=== PATIENT | female | born 1995 | race Caucasian/White ===

== ENCOUNTER 2016-03-31 19:22 | Emergency (ER) | payer BC ==
[2016-03-31] MEDS ORDERED: DIPHENHYDRAMINE HCL 50 MG CAPSULE PO ONE (19:52)
--- NOTE | 2016-03-31 19:52 | ER Document Report ---
ED Medical Screen (RME) - General Stated Complaint: VOMITING Mode of Arrival: Ambulatory Information source: Patient Notes: Patient states she's had nausea and vomiting that started today. Patient's currently 10 weeks . Patient has had ultrasound to confirm the . Patient complains of side pain syndrome vomiting. hx: None I have greeted and performed a rapid initial assessment of this patient. A comprehensive ED assessment and evaluation of the patient, analysis of test results and completion of the medical decision making process will be conducted by additional ED providers. TRAVEL OUTSIDE OF THE [place] IN LAST 30 DAYS: No - Related Data Allergies/Adverse Reactions: No Known Allergies Allergy (Verified 03/31/16 19:51) Past Medical History - Immunizations Immunizations up to date: Yes Hx Diphtheria, Pertussis, Tetanus Vaccination: Yes Physical Exam - Vital signs Vitals: Temp Pulse Resp BP Pulse Ox 97.5 F 95 H 18 143/81 H 97 03/31/16 19:44 03/31/16 19:44 03/31/16 19:44 03/31/16 19:44 03/31/16 19:44 - Abdominal Tenderness: Tender - Right lateral side Course - Vital Signs Vital signs: Temp Pulse Resp BP Pulse Ox 97.5 F 95 H 18 143/81 H 97 03/31/16 19:44 03/31/16 19:44 03/31/16 19:44 03/31/16 19:44 03/31/16 19:44
[2016-03-31 21:02] LABS: ABSOLUTE LYMPHOCYTES (AUTO) 1.6 10^3/uL (0.5-4.7); ABSOLUTE MONOCYTES (AUTO) 0.9 10^3/uL (0.1-1.4); ABSOLUTE NEUT (AUTO) 12.9 10^3/uL (1.7-8.2); BASOPHILS % (AUTO) 0.3 % (0-2); EOSINOPHILS % (AUTO) 0.2 % (0-6); HEMATOCRIT 36.4 % (36.0-47.0); HEMOGLOBIN 12.3 g/dL (12.0-15.5); HGB HCT DIFFERENCE 0.5; LYMPHOCYTES % (AUTO) 10.3 % (13-45); MEAN CORPUSCULAR HGB CONC 33.7 g/dL (32.0-36.0); MEAN CORPUSCULAR VOLUME 86 fl (80-97); MONOCYTES % (AUTO) 5.7 % (3-13); RED BLOOD COUNT 4.24 10^6/uL (3.72-5.28); RED CELL DISTRIBUTION WIDTH 13.5 % (11.5-14.0); SEGMENTED NEUTROPHILS % (AUTO) 83.5 % (42-78); WHITE BLOOD COUNT 15.4 10^3/uL (4.0-10.5)
[2016-03-31 21:22] LABS: ALANINE AMINOTRANSFERASE 29 U/L (5-35); ALBUMIN 4.5 g/dL (3.7-5.6); ALKALINE PHOSPHATASE 74 U/L (50-135); ANION GAP 13 (5-19); ASPARTATE AMINO TRANSFERASE 19 U/L (5-30); BILIRUBIN,TOTAL 0.6 mg/dL (0.2-1.3); BLOOD UREA NITROGEN 8 mg/dL (7-20); CARBON DIOXIDE 22 mmol/L (22-30); CHLORIDE 101 mmol/L (98-107); GLUCOSE 105 mg/dL (75-110); LIPASE 65.7 U/L (23-300); POTASSIUM 4.2 mmol/L (3.6-5.0); SODIUM 135.9 mmol/L (137-145); TOTAL PROTEIN 7.8 g/dL (6.3-8.2)
[2016-03-31] MEDS ORDERED: NORMAL SALINE 1000 ML 1,000 ML IV ONE (23:56)
[2016-04-01] MEDS ORDERED: METOCLOPRAMIDE HCL INJ/PF 10 MG/2 ML SDV IV ONE (00:02)
--- NOTE | 2016-04-01 00:04 | ER Document Report ---
ED General - General Chief Complaint: Nausea/Vomiting Stated Complaint: VOMITING Mode of Arrival: Ambulatory Notes: Patient is a 20 year old female who presents with complaint of excessive vomiting and dehydration. She is presently 10 weeks . She's had vomiting throughout her first trimester . Today the vomiting continued throughout the day. Usually her vomiting is just the morning. No abdominal pain she has some mild epigastric pain. She also has a little bit of left lower quadrant pain which she says is chronic related to an ovarian cyst. She's had no vaginal bleeding. She had a normal intrauterine on ultrasound recently via ultrasound by her reclaimer. She was prescribed Zofran but then was told not to take it and therefore she has not been taking it. She said no fevers. No diarrhea. No other complaints at this time. TRAVEL OUTSIDE OF THE [place] IN LAST 30 DAYS: No - Related Data Allergies/Adverse Reactions: No Known Allergies Allergy (Verified 03/31/16 19:51) Past Medical History - General Information source: Patient - Social History Smoking Status: Never Smoker Chew tobacco use (# tins/day): No Frequency of alcohol use: None Drug Abuse: None Family History: Arthritis, CAD, DM, Hyperlipidemia, Hypertension, Malignancy Renal/ Medical History: Denies: Hx Peritoneal Dialysis - Immunizations Immunizations up to date: Yes Hx Diphtheria, Pertussis, Tetanus Vaccination: Yes Hx Pneumococcal Vaccination: 03/13/13 Review of Systems - Review of Systems Notes: My Normal Review Basic REVIEW OF SYSTEMS: CONSTITUTIONAL : Denies fever, chills, or sweats. Denies recent illness. EENT: Denies eye, ear, throat, or mouth pain or symptoms. Denies nasal or sinus congestion.n. RESPIRATORY: Denies cough, cold, or chest congestion. Denies shortness of breath, difficulty breathing, or wheezing. GASTROINTESTINAL: Epigastric abdominal pain. Recurrent vomiting. Denies constipation. Last BM: GENITOURINARY: Denies difficulty urinating, painful urination, burning, frequency, or blood in urine. FEMALE GENITOURINARY: No vaginal bleeding. Currently . MUSCULOSKELETAL: Denies neck or back pain or joint pain or swelling. SKIN: Denies rash or skin lesions. NEUROLOGICAL: Denies altered mental status or loss of consciousness. Denies headache. Denies weakness or paralysis or loss of use of either side. Denies problems with gait or speech. Denies sensory or motor loss. ALL OTHER SYSTEMS REVIEWED AND NEGATIVE. Physical Exam - Vital signs Vitals: Temp Pulse Resp BP Pulse Ox 97.5 F 95 H 18 143/81 H 97 03/31/16 19:44 03/31/16 19:44 03/31/16 19:44 03/31/16 19:44 03/31/16 19:44 - Notes Notes: General Appearance: Well nourished, alert, cooperative, no acute distress, no obvious discomfort. Vitals: reviewed, See vital signs table. Head: no swelling or tenderness to the head Eyes: PERRL, EOMI, Conjuctiva clear Mouth: No decreasd moisture Lungs: No wheezing, No rales, No rhonci, No accessory muscle use, good air exchange bilaterally. Heart: Normal rate, Regular rythm, No murmur, no rub Abdomen: Normal BS, soft, No rigidity, mild epigastric abdominal tenderness to palpation, No guarding, no rebound, no abdominal masses, no organomegaly Extremities: strength 5/5 in all extremities, good pulses in all extremities, no swelling or tenderness in the extremities, no edema. Skin: warm, dry, appropriate color, no rash Neuro: speech clear, oriented x 3, normal affect, responds appropriately to questions. Course - Re-evaluation Re-evalutation: 04/01/16 02:45 Patient is looking much improved. Her nausea is gone and the Reglan worked well for her. We are just awaiting patient's urinalysis. - Vital Signs Vital signs: Temp Pulse Resp BP Pulse Ox 97.5 F 95 H 18 143/81 H 97 03/31/16 19:44 03/31/16 19:44 03/31/16 19:44 03/31/16 19:44 03/31/16 19:44 - Laboratory Result Diagrams: 03/31/16 20:07 03/31/16 20:07 Laboratory results interpreted by me: 03/31/16 03/31/16 04/01/16 20:07 20:07 02:23 WBC 15.4 H Seg Neutrophils % 83.5 H Lymphocytes % 10.3 L Absolute Neutrophils 12.9 H Sodium 135.9 L Beta HCG, Quant 02145.00 H Urine Protein 30 H Urine Ketones 20 H Urine Ascorbic Acid 40 H - Transfer of Care Notes: 04/01/16 03:18 Patient is nausea is completely resolved Reglan. She's not had any further vomiting. She's received 2 L of IV fluids. She looks well. She has some mild epigastric abdominal pain. She does not have much pain over the right upper quadrant. She has no elevation of liver enzymes. I think all but her disease is unlikely I think this is mostly hyperemesis gravidarum. I did talk to her about changes in her pain. I informed her that she must return to ER immediately if she does develop any recurrent abdominal pain, pain localized to right upper quadrant, any fevers, or worsening of her vomiting. Patient agrees with plan will be discharged home. Dictation of this chart was performed using voice recognition software; therefore, there may be some unintended grammatical errors. Discharge - Discharge Clinical Impression: Hyperemesis gravidarum Condition: Good Disposition: HOME, SELF-CARE Additional Instructions: Hyperemesis Gravidarum Hyperemesis gravidarum is the medical term for severe vomiting during . We don't know exactly why it occurs, but it's a common problem. Dehydration can occur. This reduces blood flow to the placenta, decreasing the baby's nourishment. The baby will also become dehydrated. There can be harmful changes in blood sodium, potassium, or acid balance. Our goal is to correct, and prevent, dehydration. For severe cases, we give IV fluids. Antinausea medication will be prescribed. (Don't be concerned about " defects" -- the risk to you and your baby from the hyperemesis is the biggest problem. The antinausea medication is very safe at this stage of .) Call the doctor if you have vaginal bleeding, abdominal pain, severe lightheadedness or weakness, or other alarming symptoms. Please return to the ER immediately if you have recurrent abdominal pain, pain focal to the right upper quadrant, any fevers, or recurrent vomiting despite taking the Reglan. Please follow-up with your OB doctor for close reevaluation in 2-3 days. Prescriptions: Metoclopramide HCl [Reglan 10 mg Tablet] 1 tab PO ASDIR PRN #25 tablet PRN Reason: Forms: Return to Work Referrals: MARIANNA ALFREDO MD [Primary Care Provider] - 04/03/16
[2016-04-01 02:51] LABS: APPEARANCE,URINE SLIGHTLY-CLOUDY; BILIRUBIN,URINE NEGATIVE (NEGATIVE); GLUCOSE, URINE NEGATIVE (NEGATIVE); KETONES,URINE 20 mg/dL (NEGATIVE); LEUKOCYTE ESTERASE,URINE NEGATIVE (NEGATIVE); NITRITE,URINE NEGATIVE (NEGATIVE); PROTEIN,URINE 30 mg/dL (NEGATIVE); URINE SPECIFIC GRAVITY 1.027; UROBILINOGEN,URINE NEGATIVE mg/dL (<2.0)
[2016-04-01 04:50] VITALS: BP 103/74
== END 2016-04-01 03:50 | disposition home or self-care (01) ==
LOC: ER 19:22
DX: O21.0 Mild hyperemesis gravidarum (principal); O26.891 Other specified pregnancy related conditions, first trimester; R10.13 Epigastric pain; R10.32 Left lower quadrant pain; O34.81 Maternal care for other abnormalities of pelvic organs, first trimester; N83.202 Unspecified ovarian cyst, left side; Z3A.10 10 weeks gestation of pregnancy
CPT/HCPCS: 99283; 96374; 36415; 84702; 83690; 85025; 80053; 81001; J2765

== ENCOUNTER 2016-05-08 16:23 | Emergency (ER) | payer BC ==
--- NOTE | 2016-05-08 16:50 | ER Document Report ---
ED Medical Screen (RME) - General Stated Complaint: VOMITING, ABDOMINAL PAIN Notes: 20 yo female, 15 weeks G1, c/o n/v since this morning. last vomited 1 hr SHANK RANDER. mild suprapubic cramping. doesnt feel baby "moving as much". no spotting. TRAVEL OUTSIDE OF THE [place] IN LAST 30 DAYS: No - Related Data Allergies/Adverse Reactions: No Known Allergies Allergy (Verified 05/08/16 16:46) Past Medical History Renal/ Medical History: Denies: Hx Peritoneal Dialysis - Immunizations Immunizations up to date: Yes Hx Diphtheria, Pertussis, Tetanus Vaccination: Yes Physical Exam - Vital signs Vitals: Temp Pulse Resp BP Pulse Ox 98.2 F 87 16 121/76 98 05/08/16 16:30 05/08/16 16:30 05/08/16 16:30 05/08/16 16:30 05/08/16 16:30 Course - Vital Signs Vital signs: Temp Pulse Resp BP Pulse Ox 98.2 F 87 16 121/76 98 05/08/16 16:30 05/08/16 16:30 05/08/16 16:30 05/08/16 16:30 05/08/16 16:30
[2016-05-08 17:08] LABS: ABSOLUTE EOSINOPHILS # (AUTO) 0.1 10^3/uL (0.0-0.6); ABSOLUTE LYMPHOCYTES (AUTO) 2.5 10^3/uL (0.5-4.7); ABSOLUTE MONOCYTES (AUTO) 1.1 10^3/uL (0.1-1.4); ABSOLUTE NEUT (AUTO) 9.9 10^3/uL (1.7-8.2); BASOPHILS % (AUTO) 0.3 % (0-2); EOSINOPHILS % (AUTO) 0.8 % (0-6); HEMOGLOBIN 12.2 g/dL (12.0-15.5); HGB HCT DIFFERENCE 0.6; LYMPHOCYTES % (AUTO) 18.5 % (13-45); MEAN CORPUSCULAR HEMOGLOBIN 29.4 pg (27.0-33.4); MEAN CORPUSCULAR VOLUME 87 fl (80-97); MONOCYTES % (AUTO) 7.7 % (3-13); RED BLOOD COUNT 4.17 10^6/uL (3.72-5.28); RED CELL DISTRIBUTION WIDTH 13.3 % (11.5-14.0); SEGMENTED NEUTROPHILS % (AUTO) 72.7 % (42-78); WHITE BLOOD COUNT 13.6 10^3/uL (4.0-10.5)
[2016-05-08 17:24] LABS: ALANINE AMINOTRANSFERASE 38 U/L (5-35); ALBUMIN 4.5 g/dL (3.7-5.6); ALKALINE PHOSPHATASE 71 U/L (50-135); ANION GAP 12 (5-19); ASPARTATE AMINO TRANSFERASE 22 U/L (5-30); BILIRUBIN,DIRECT 0.2 mg/dL (0.0-0.4); BILIRUBIN,TOTAL 0.4 mg/dL (0.2-1.3); BLOOD UREA NITROGEN 9 mg/dL (7-20); CALCIUM 10.2 mg/dL (8.4-10.2); CARBON DIOXIDE 27 mmol/L (22-30); CHLORIDE 100 mmol/L (98-107); GLUCOSE 92 mg/dL (75-110); POTASSIUM 4.1 mmol/L (3.6-5.0); SODIUM 138.8 mmol/L (137-145)
[2016-05-08 17:27] LABS: APPEARANCE,URINE CLOUDY; BILIRUBIN,URINE NEGATIVE (NEGATIVE); GLUCOSE, URINE NEGATIVE (NEGATIVE); KETONES,URINE NEGATIVE (NEGATIVE); LEUKOCYTE ESTERASE,URINE TRACE (NEGATIVE); NITRITE,URINE NEGATIVE (NEGATIVE); PROTEIN,URINE NEGATIVE (NEGATIVE); URINE SPECIFIC GRAVITY 1.014; UROBILINOGEN,URINE NEGATIVE mg/dL (<2.0)
--- NOTE | 2016-05-08 19:46 | ER Document Report ---
ED GI/ - General Chief Complaint: Vomiting Stated Complaint: VOMITING, ABDOMINAL PAIN Notes: Patient is a 20-year-old female presents emergency department complaining of vomiting and lower abdominal pain. Patient is a 15 week female with last menstrual period on 01/14/2016. Patient states that she has a history of hyperemesis gravidarum which is been followed by ARTURO Alfredo OB /CARDIOTHORACIC SURGEON during her . Patient states that today after lunch she admits to nausea with one episode of emesis followed by left lower abdominal pain. She describes this pain as a crampy/pulled muscle feeling which is consistent with her history of ovarian cyst. She's not taken anything for this pain today. The only thing that is abnormal for her she states is that she feels she has less movement and normal. Based on these symptoms, [facility] office referred her to the emergency department. She denies any urinary symptoms, vaginal bleeding, vaginal pain, vaginal discharge. She denies any nausea now but still admits to left lower quadrant pain which is a 1 out of 5 in severity. Primary care is [facility] Past medical history significant for history of ovarian cysts, hyperemesis gravidarum, history of pyelonephritis Denies any past surgical or social history Denies any allergies taking vitamins as well as Reglan for nausea. She is due to follow up with [facility] [employer] AD[facility] on May 23 TRAVEL OUTSIDE OF THE [place] IN LAST 30 DAYS: No - Related Data Allergies/Adverse Reactions: No Known Allergies Allergy (Verified 05/08/16 16:46) Past Medical History - Social History Smoking Status: Unknown if Ever Smoked Chew tobacco use (# tins/day): No Frequency of alcohol use: None Drug Abuse: None Family History: Arthritis, CAD, DM, Hyperlipidemia, Hypertension, Malignancy Patient has suicidal ideation: No Patient has homicidal ideation: No Renal/ Medical History: Denies: Hx Peritoneal Dialysis - Immunizations Immunizations up to date: Yes Hx Diphtheria, Pertussis, Tetanus Vaccination: Yes Hx Pneumococcal Vaccination: 03/13/13 Review of Systems - Review of Systems Constitutional: No symptoms reported EENT: No symptoms reported Cardiovascular: No symptoms reported Respiratory: No symptoms reported Gastrointestinal: See HPI Genitourinary: See HPI -: Yes All other systems reviewed and negative Physical Exam - Vital signs Vitals: Temp Pulse Resp BP Pulse Ox 98.2 F 87 16 121/76 98 05/08/16 16:30 05/08/16 16:30 05/08/16 16:30 05/08/16 16:30 05/08/16 16:30 - Notes Notes: PHYSICAL EXAM GENERAL: Alert, interacts well. HEAD: Normocephalic, atraumatic. EYES: Pupils equal, round, and reactive to light. Extraocular movements intact. ENT: Oral mucosa moist, tongue midline. NECK: Full range of motion. Supple. Trachea midline. LUNGS: Clear to auscultation bilaterally, no wheezes, rales, or rhonchi. No respiratory distress. HEART: Regular rate and rhythm. No murmurs, gallops, or rubs. ABDOMEN: Soft, nondistended, nontender. No guarding, rebound, or rigidity.. Bowel sounds present in all 4 quadrants. EXTREMITIES: Moves all 4 extremities spontaneously. No edema, radial and dorsalis pedis pulses 2/4 bilaterally. No cyanosis. NEUROLOGICAL: Alert and oriented x4. Normal speech. PSYCH: Normal affect, normal mood. SKIN: Warm, dry, normal turgor. No rashes or lesions noted. Course - Re-evaluation Re-evalutation: 05/08/16 20:14 Patient is a 20-year-old female who is 15 weeks presents with hyperemesis gravidarum with left lower quadrant pain that is chronic from ovarian cysts. Patient's physical exam is completely benign for any evidence of an acute abdomen or pelvic pathology. Patient is been tolerating by mouth since this afternoon with one episode of emesis. heart rates were 158. Laboratory findings do not show any signs of leukocytosis, anemia. No acute electrolyte abnormalities, elevations in liver function, kidney function and pancreatic function. Patient has been encouraged to follow up with [facility] [employer] as scheduled Per [facility] protocol and guidelines, this case was discussed with supervising physician Dr. Larry Larry prior to discharge - Vital Signs Vital signs: Temp Pulse Resp BP Pulse Ox 98.2 F 87 16 121/76 98 05/08/16 16:30 05/08/16 16:30 05/08/16 16:30 05/08/16 16:30 05/08/16 16:30 - Laboratory Result Diagrams: 05/08/16 16:50 05/08/16 16:50 Laboratory results interpreted by me: 05/08/16 05/08/16 05/08/16 16:50 16:50 16:50 WBC 13.6 H Absolute Neutrophils 9.9 H ALT 38 H Beta HCG, Quant 99322.00 H Ur Leukocyte Esterase TRACE H Discharge - Discharge Clinical Impression: Abdominal pain during Condition: Good Disposition: HOME, SELF-CARE Additional Instructions: There were no acute concerns on evaluation today in the emergency department. Follow up with [facility] [employer] as scheduled Please take your medications as prescribed Please return to the emergency department if your abdominal pain is severe and does not resolve, vomiting that does not respond to home medications, any severe vaginal bleeding that does not resolve. Referrals: MARIANNA ALFREDO MD [Primary Care Provider] - Follow up in 1 week
[2016-05-08 20:19] VITALS: BP 117/74
== END 2016-05-08 20:29 | disposition home or self-care (01) ==
LOC: ER 16:23
DX: O34.80 Maternal care for other abnormalities of pelvic organs, unspecified trimester (principal); N83.209 Unspecified ovarian cyst, unspecified side; O21.0 Mild hyperemesis gravidarum; O26.892 Other specified pregnancy related conditions, second trimester; R10.32 Left lower quadrant pain; Z3A.15 15 weeks gestation of pregnancy; O36.8120 Decreased fetal movements, second trimester, not applicable or unspecified; Z87.440 Personal history of urinary (tract) infections; Z79.899 Other long term (current) drug therapy
CPT/HCPCS: 36415; 80053; 81001; 84702; 85025; 99284

== ENCOUNTER 2016-06-15 10:33 | Emergency (ER) | payer BC ==
[2016-06-15] MEDS ORDERED: DIPHENHYDRAMINE HCL 50 MG/ML VIAL IV ONE (11:10)
[2016-06-15] MEDS ORDERED: RINGERS SOLUTION,LACTATED 1,000 ML IV ONE (11:10)
[2016-06-15] MEDS ORDERED: METOCLOPRAMIDE HCL INJ/PF 10 MG/2 ML SDV IV ONE (11:10)
--- NOTE | 2016-06-15 11:16 | ER Document Report ---
ED General - General Chief Complaint: Nausea/Vomiting Stated Complaint: VOMITING Notes: Patient is a 20-year-old female at 20 weeks with a history of hyperemesis gravidarum who presents with 12 hours of persistent vomiting. They became concerned when she began to have flecks of blood and several episodes of her vomitus today and so they came to the emergency room. She has had multiple similar presentations in the past. She has been trying Zofran and doxylamine at home without improvement of her symptoms. Nothing worsens or symptoms. She has not recently seen her MARKETING PLANNER regarding today's concerns. She continues to feel active movement. Denies any vaginal bleeding, focal abdominal pain, diarrhea, chest pain or shortness of breath. TRAVEL OUTSIDE OF THE [place] IN LAST 30 DAYS: No - Related Data Allergies/Adverse Reactions: No Known Allergies Allergy (Verified 06/15/16 10:39) Past Medical History - General Information source: Patient - Social History Smoking Status: Never Smoker Frequency of alcohol use: None Drug Abuse: None Lives with: Parents Family History: Arthritis, CAD, DM, Hyperlipidemia, Hypertension, Malignancy Patient has suicidal ideation: No Patient has homicidal ideation: No Renal/ Medical History: Denies: Hx Peritoneal Dialysis - Immunizations Immunizations up to date: Yes Hx Diphtheria, Pertussis, Tetanus Vaccination: Yes Hx Pneumococcal Vaccination: 03/13/13 Review of Systems - Review of Systems Notes: Constitutional: Negative for fever. HENT: Negative for sore throat. Eyes: Negative for visual changes. Cardiovascular: Negative for chest pain. Respiratory: Negative for shortness of breath. Gastrointestinal: Negative for abdominal pain, positive for vomiting. Genitourinary: Negative for dysuria. Musculoskeletal: Negative for back pain. Skin: Negative for rash. Neurological: Negative for headaches, weakness or numbness. 10 point ROS negative except as marked above and in HPI. Physical Exam - Vital signs Vitals: Temp Pulse Resp BP Pulse Ox 97.5 F 108 H 18 138/80 H 99 06/15/16 10:36 06/15/16 10:36 06/15/16 10:36 06/15/16 10:36 06/15/16 10:36 Notes: PHYSICAL EXAMINATION: GENERAL: Well-appearing, well-nourished and in no acute distress. HEAD: Atraumatic, normocephalic. EYES: Pupils equal round and reactive to light, extraocular movements intact, sclera anicteric, conjunctiva are normal. ENT: nares patent, oropharynx clear without exudates. Moist mucous membranes. NECK: Normal range of motion, supple without lymphadenopathy LUNGS: Breath sounds clear to auscultation bilaterally and equal. No wheezes rales or rhonchi. HEART: Regular rate and rhythm without murmurs ABDOMEN: Soft, nontender, normoactive bowel sounds. No guarding, no rebound. No masses appreciated. EXTREMITIES: Normal range of motion, no pitting or edema. No cyanosis. NEUROLOGICAL: No focal neurological deficits. Moves all extremities spontaneously and on command. PSYCH: Normal mood, normal affect. SKIN: Warm, Dry, normal turgor, no rashes or lesions noted. Course - Re-evaluation Re-evalutation: 06/15/16 11:11 Patient presents with persistent vomiting during . Vitals at time of arrival unremarkable without tachycardia or hypotension. Laboratories reveal a normal creatinine and no evidence of significant dehydration. Patient was able to tolerate oral intake here in the emergency department. IV fluids were provided. Bedside ultrasound shows appropriate heart rate for gestational age with active movement. No vaginal bleeding or discharge. Based on abdominal exam, vitals and history I do not suspect an acute appendicitis, cholestasis of , acute cholecystitis, pancreatitis, or bowel obstruction. At this time will discharge with return precautions and follow-up recommendations. Verbal discharge instructions given a the bedside and opportunity for questions given. Medication warnings reviewed. Patient is in agreement with this plan and has verbalized understanding of return precautions and the need for primary care follow-up in the next 24-72 hours. - Vital Signs Vital signs: Temp Pulse Resp BP Pulse Ox 97.5 F 108 H 18 138/80 H 99 06/15/16 10:36 06/15/16 10:36 06/15/16 10:36 06/15/16 10:36 06/15/16 10:36 - Laboratory Result Diagrams: 06/15/16 11:39 Laboratory results interpreted by me: 06/15/16 11:39 BUN 5 L Discharge - Discharge Clinical Impression: Vomiting during Condition: Good Disposition: HOME, SELF-CARE Additional Instructions: You have been seen for vomiting during . You should continue to drink plenty of water and consider taking a solution such as Pedialyte if your having difficulty eating food. Please return if you become unable to drink any fluids for more than 12 hours, urinate less than twice a day, pass out, or have any other symptoms that are concerning to you. Your labs today are normal.
[2016-06-15 12:33] LABS: ALANINE AMINOTRANSFERASE 27 U/L (5-35); ALBUMIN 3.8 g/dL (3.7-5.6); ALKALINE PHOSPHATASE 89 U/L (50-135); ANION GAP 11 (5-19); ASPARTATE AMINO TRANSFERASE 18 U/L (5-30); BILIRUBIN,DIRECT 0.4 mg/dL (0.0-0.4); BILIRUBIN,TOTAL 0.7 mg/dL (0.2-1.3); BLOOD UREA NITROGEN 5 mg/dL (7-20); CALCIUM 9.4 mg/dL (8.4-10.2); CARBON DIOXIDE 23 mmol/L (22-30); CHLORIDE 103 mmol/L (98-107); CREATININE RESULT 0.59 mg/dL (0.52-1.25); GLUCOSE 93 mg/dL (75-110); LIPASE 44.6 U/L (23-300); POTASSIUM 4.3 mmol/L (3.6-5.0); TOTAL PROTEIN 7.6 g/dL (6.3-8.2)
[2016-06-15 13:34] VITALS: BP 133/70
== END 2016-06-15 13:15 | disposition home or self-care (01) ==
LOC: ER 10:33
DX: O21.9 Vomiting of pregnancy, unspecified (principal); Z3A.20 20 weeks gestation of pregnancy
CPT/HCPCS: 99284; 96375; 96365; 36415; 83690; 80053; J1200; J2765; J7120

== ENCOUNTER 2016-06-22 08:05 | Emergency (ER) | payer BC ==
[2016-06-22] MEDS ORDERED: NORMAL SALINE 1000 ML 1,000 ML IV ONE (08:57)
[2016-06-22 09:49] LABS: ABSOLUTE EOSINOPHILS # (AUTO) 0.1 10^3/uL (0.0-0.6); ABSOLUTE NEUT (AUTO) 8.7 10^3/uL (1.7-8.2); BASOPHILS % (AUTO) 0.2 % (0-2); EOSINOPHILS % (AUTO) 0.7 % (0-6); HEMATOCRIT 32.8 % (36.0-47.0); HEMOGLOBIN 11.2 g/dL (12.0-15.5); HGB HCT DIFFERENCE 0.8; LYMPHOCYTES % (AUTO) 16.7 % (13-45); MEAN CORPUSCULAR HEMOGLOBIN 29.5 pg (27.0-33.4); MEAN CORPUSCULAR HGB CONC 34.1 g/dL (32.0-36.0); MEAN CORPUSCULAR VOLUME 87 fl (80-97); MONOCYTES % (AUTO) 8.4 % (3-13); RED BLOOD COUNT 3.79 10^6/uL (3.72-5.28); RED CELL DISTRIBUTION WIDTH 12.7 % (11.5-14.0); WHITE BLOOD COUNT 11.8 10^3/uL (4.0-10.5)
[2016-06-22 09:54] LABS: APPEARANCE,URINE CLOUDY; BILIRUBIN,URINE NEGATIVE (NEGATIVE); CALCIUM OXALATE CRYSTALS,URINE MODERATE /HPF; GLUCOSE, URINE NEGATIVE (NEGATIVE); KETONES,URINE NEGATIVE (NEGATIVE); LEUKOCYTE ESTERASE,URINE NEGATIVE (NEGATIVE); NITRITE,URINE NEGATIVE (NEGATIVE); PROTEIN,URINE 30 mg/dL (NEGATIVE); URINE SPECIFIC GRAVITY 1.026; UROBILINOGEN,URINE NEGATIVE mg/dL (<2.0)
[2016-06-22 10:11] LABS: ALANINE AMINOTRANSFERASE 34 U/L (5-35); ALBUMIN 3.7 g/dL (3.7-5.6); ALKALINE PHOSPHATASE 85 U/L (50-135); ANION GAP 12 (5-19); ASPARTATE AMINO TRANSFERASE 22 U/L (5-30); BILIRUBIN,DIRECT 0.2 mg/dL (0.0-0.4); BILIRUBIN,TOTAL 0.5 mg/dL (0.2-1.3); BLOOD UREA NITROGEN 6 mg/dL (7-20); CALCIUM 9.6 mg/dL (8.4-10.2); CARBON DIOXIDE 22 mmol/L (22-30); CHLORIDE 102 mmol/L (98-107); CREATININE RESULT 0.57 mg/dL (0.52-1.25); GLUCOSE 89 mg/dL (75-110); LIPASE 35.3 U/L (23-300); SODIUM 136.4 mmol/L (137-145); TOTAL PROTEIN 7.1 g/dL (6.3-8.2)
[2016-06-22 10:42] VITALS: BP 124/74
--- NOTE | 2016-06-22 10:42 | ER Document Report ---
ED General - General Chief Complaint: Flank Pain Stated Complaint: FLANK PAIN Time Seen by Provider: 06/22/16 08:56 TRAVEL OUTSIDE OF THE [place] IN LAST 30 DAYS: No - HPI Patient complains to provider of: right flank pain Notes: Patient is currently coming in for right flank pain. Patient's is concerned she may have pyelonephritis. Patient denies dysuria fevers chills dysuria. Patient states pain has been constant since she's been patient is a . Patient states she's been told this is relatively pain past. Denies any recent antibiotics denies any recent travel. - Related Data Allergies/Adverse Reactions: No Known Allergies Allergy (Verified 06/22/16 08:08) Past Medical History - Social History Smoking Status: Never Smoker Chew tobacco use (# tins/day): No Frequency of alcohol use: None Drug Abuse: None Family History: Arthritis, CAD, DM, Hyperlipidemia, Hypertension, Malignancy Patient has suicidal ideation: No Patient has homicidal ideation: No Renal/ Medical History: Denies: Hx Peritoneal Dialysis - Immunizations Immunizations up to date: Yes Hx Diphtheria, Pertussis, Tetanus Vaccination: Yes Hx Pneumococcal Vaccination: 03/13/13 Review of Systems - Review of Systems Constitutional: No symptoms reported EENT: No symptoms reported Cardiovascular: No symptoms reported Respiratory: No symptoms reported Gastrointestinal: Abdominal pain Genitourinary: No symptoms reported Female Genitourinary: No symptoms reported Musculoskeletal: No symptoms reported Skin: No symptoms reported Hematologic/Lymphatic: No symptoms reported Neurological/Psychological: No symptoms reported -: Yes All other systems reviewed and negative Physical Exam - Vital signs Vitals: Temp Pulse Resp BP Pulse Ox 98.1 F 100 H 16 146/88 H 98 06/22/16 08:09 06/22/16 08:09 06/22/16 08:09 06/22/16 08:09 06/22/16 08:09 Interpretation: Normal - General General appearance: Appears well, Alert - HEENT Head: Normocephalic, Atraumatic Eyes: Normal Pupils: PERRL - Respiratory Respiratory status: No respiratory distress Chest status: Nontender Breath sounds: Normal Chest palpation: Normal - Cardiovascular Rhythm: Regular Heart sounds: Normal auscultation Murmur: No - Abdominal Inspection: Normal Distension: No distension Bowel sounds: Normal Tenderness: Nontender Organomegaly: No organomegaly - Back Back: Normal, Nontender - Extremities General upper extremity: Normal inspection, Nontender, Normal color, Normal ROM , Normal temperature General lower extremity: Normal inspection, Nontender, Normal color, Normal ROM , Normal temperature, Normal weight bearing. No: Karime's sign - Neurological Neuro grossly intact: Yes Cognition: Normal Orientation: AAOx4 Jeffrey Coma Scale Eye Opening: Spontaneous Wilsey Coma Scale Verbal: Oriented Wilsey Coma Scale Motor: Obeys Commands Wilsey Coma Scale Total: 15 Speech: Normal Motor strength normal: LUE, RUE, LLE, RLE Sensory: Normal - Psychological Associated symptoms: Normal affect, Normal mood - Skin Skin Temperature: Warm Skin Moisture: Dry Skin Color: Normal Course - Re-evaluation Re-evalutation: 06/22/16 14:56 This is a polynephritis patient does have a systematic bacteriuria. More likely is contamination but due to the patient's will start patient on Macrobid. Otherwise patient lab does not show any critical etiology. Patient will be discharged home follow-up with her BUDGET ACCOUNTANT. - Vital Signs Vital signs: Temp Pulse Resp BP Pulse Ox 97.8 F 88 16 124/74 98 06/22/16 10:39 06/22/16 10:39 06/22/16 10:39 06/22/16 10:39 06/22/16 10:39 - Laboratory Result Diagrams: 06/22/16 09:20 06/22/16 09:20 Laboratory results interpreted by me: 06/22/16 06/22/16 06/22/16 09:20 09:20 09:20 WBC 11.8 H Hgb 11.2 L Hct 32.8 L Absolute Neutrophils 8.7 H Sodium 136.4 L BUN 6 L Urine Protein 30 H Urine HCG, Qual POSITIVE H Discharge - Discharge Clinical Impression: Asymptomatic bacteriuria, flank pain in Qualifiers: Weeks of gestation: 20 weeks Qualified Code(s): Z3A.20 - 20 weeks gestation of Condition: Good Disposition: HOME, SELF-CARE Instructions: Pelvic Pain in and Round Ligament Pain ([facility]) Additional Instructions: Please follow-up with your BUDGET ACCOUNTANT. Your labwork today shows no critical etiology. There is bacteria in your urine however things may be due to contamination. Because you're we will treat you with Macrobid. Continue with your Dr. medication at home. You have been seen for vomiting during . You should continue to drink plenty of water and consider taking a solution such as Pedialyte if your having difficulty eating food. Please return if you become unable to drink any fluids for more than 12 hours, urinate less than twice a day, pass out, or have any other symptoms that are concerning to you. For nausea and vomiting during I recomment: Start with 10-12.5 mg of pyridoxine (vitamin B6) three times a day for 2 days. If not fully effective, Increase to 12.5 mg of pyridoxine four times a day for 2 days. If not fully effective, Increase to 25 mg of pyridoxine three times a day for 2 days. If not fully effective, Continue 25 mg pyridoxine 3 times a day, and add 12.5 mg of doxylamine before bedtime each day for 2 days. If not fully effective, Continue 25 mg pyridoxine 3 times a day, and take 12.5 mg of doxylamine twice a day. If not fully effective, Continue 25 mg pyridoxine 3 times a day, and take 12.5 mg of doxylamine three times a day. If not fully effective, Continue 25 mg pyridoxine 3 times a day, and 12.5 mg of doxylamine 3 times a day , while adding Emetrol, one to two tablespoons (15-30 cc) taken once or twice a day as needed. (Emetrol is an [id number] mixture of sugar syrups and phosphoric acid [phosphorylated carbohydrate solution]) that acts by soothing the actual wall of the gastrointestinal tract). If not fully effective, Consult with your doctor. Prescriptions: Nitrofurantoin Monohyd/M-Cryst [Macrobid 100 mg Capsule] 100 mg PO BID #14 capsule Referrals: MARGARITO SON MD [Primary Care Provider] - Follow up in 3-5 days
== END 2016-06-22 10:43 | disposition home or self-care (01) ==
LOC: ER 08:05
DX: R82.71 Bacteriuria (principal); R10.9 Unspecified abdominal pain; Z3A.20 20 weeks gestation of pregnancy
CPT/HCPCS: 99284; 96360; 36415; 87086; 83690; 85025; 81025; 80053; 81001; J7030

== ENCOUNTER 2016-07-03 10:12 | Observation (INO) | payer BC ==
[2016-07-03 11:26] LABS: HEMATOCRIT 32.6 % (36.0-47.0); HEMOGLOBIN 11.4 g/dL (12.0-15.5); HGB HCT DIFFERENCE 1.6; MEAN CORPUSCULAR HEMOGLOBIN 30.3 pg (27.0-33.4); MEAN CORPUSCULAR VOLUME 87 fl (80-97); RED BLOOD COUNT 3.77 10^6/uL (3.72-5.28); RED CELL DISTRIBUTION WIDTH 12.5 % (11.5-14.0); WHITE BLOOD COUNT 10.4 10^3/uL (4.0-10.5)
[2016-07-03] MEDS ORDERED: RINGERS SOLUTION,LACTATED 500 ML IV ONE (11:30)
[2016-07-03 11:51] LABS: ALANINE AMINOTRANSFERASE 30 U/L (5-35); ALBUMIN 3.7 g/dL (3.7-5.6); ALKALINE PHOSPHATASE 96 U/L (50-135); AMYLASE 63 U/L (30-110); ANION GAP 11 (5-19); ASPARTATE AMINO TRANSFERASE 20 U/L (5-30); BILIRUBIN,DIRECT 0.3 mg/dL (0.0-0.4); BILIRUBIN,TOTAL 0.6 mg/dL (0.2-1.3); BLOOD UREA NITROGEN 5 mg/dL (7-20); CALCIUM 9.5 mg/dL (8.4-10.2); CARBON DIOXIDE 23 mmol/L (22-30); CHLORIDE 103 mmol/L (98-107); CREATININE RESULT 0.52 mg/dL (0.52-1.25); GLUCOSE 87 mg/dL (75-110); LIPASE 36.3 U/L (23-300); SODIUM 137.3 mmol/L (137-145); TOTAL PROTEIN 7.2 g/dL (6.3-8.2)
[2016-07-03] MEDS: RINGERS SOLUTION,LACTATED 1,000 ML IV PRN ×2 (12:50→16:56)
[2016-07-03] MEDS: PROMETHAZINE HCL 25 MG SUPP.RECT PR SCH ×2 (13:25→19:12)
[2016-07-03] MEDS: ONDANSETRON HCL INJ/PF 4 MG/2 ML SDV IV SCH ×2 (15:13→22:11)
[2016-07-04] MEDS: PROMETHAZINE HCL 25 MG SUPP.RECT PR SCH ×3 (00:31→11:56)
[2016-07-04] MEDS: RINGERS SOLUTION,LACTATED 1,000 ML IV PRN (01:37)
[2016-07-04] MEDS: ONDANSETRON HCL INJ/PF 4 MG/2 ML SDV IV SCH ×2 (05:14→13:35)
[2016-07-04 06:27] LABS: HEMATOCRIT 29.5 % (36.0-47.0); HGB HCT DIFFERENCE 0.5; MEAN CORPUSCULAR HEMOGLOBIN 29.8 pg (27.0-33.4); MEAN CORPUSCULAR VOLUME 88 fl (80-97); RED BLOOD COUNT 3.37 10^6/uL (3.72-5.28); RED CELL DISTRIBUTION WIDTH 12.5 % (11.5-14.0); WHITE BLOOD COUNT 9.1 10^3/uL (4.0-10.5)
[2016-07-04 07:13] LABS: ALANINE AMINOTRANSFERASE 29 U/L (5-35); ALKALINE PHOSPHATASE 77 U/L (50-135); AMYLASE 42 U/L (30-110); ANION GAP 6 (5-19); ASPARTATE AMINO TRANSFERASE 17 U/L (5-30); BILIRUBIN,DIRECT 0.4 mg/dL (0.0-0.4); BILIRUBIN,TOTAL 0.9 mg/dL (0.2-1.3); BLOOD UREA NITROGEN 5 mg/dL (7-20); CALCIUM 9.2 mg/dL (8.4-10.2); CARBON DIOXIDE 25 mmol/L (22-30); CHLORIDE 106 mmol/L (98-107); CREATININE RESULT 0.61 mg/dL (0.52-1.25); GLUCOSE 79 mg/dL (75-110); LIPASE 33.3 U/L (23-300); POTASSIUM 4.1 mmol/L (3.6-5.0); SODIUM 136.9 mmol/L (137-145); TOTAL PROTEIN 6.2 g/dL (6.3-8.2)
[2016-07-04 12:04] VITALS: BP 113/63
--- NOTE | 2016-07-04 13:33 | PDOC DISCHARGE SUMMARY ---
General - Admit/Disc Date/PCP Admission Date/Primary Care Provider: 07/03/16 10:12 MARGARITO SON MD Discharge Date: 07/04/16 - Additional Information Resuscitation Status: Full Code Discharge Diet: As Tolerated Discharge Activity: Activity As Tolerated Home Medications: Doxylamine/Pyridoxine HCl [Diclegis Dr 10-10 mg Tablet] 1 tab PO ACLUNCH Doxylamine/Pyridoxine HCl [Diclegis Dr 10-10 mg Tablet] 1 tab PO QAM 07/03/16 Doxylamine/Pyridoxine HCl [Diclegis Dr 10-10 mg Tablet] 2 tab PO QHS 07/03/16 Bim382/FA/Omega3/Dha/Fish Oil [ Gummies] 2 tab.chew PO DAILY 07/03/16 Promethazine HCl [Phenergan 25 mg Supp.rect] 25 mg IL Q6 #0 supp.rect 07/04/16 History of Present Illness Patient complains of: Nausea and vomiting resolved. Tolerating bland diet. History of Present Illness: LEYDI MEJIA is a 20 year old female Hospital Course Hospital Course: Received iv fluids and antiemetics. Electrolytes normal. Physical Exam - Physical Exam Vital Signs: Temp Pulse Resp BP Pulse Ox 97.9 F 62 16 113/63 100 07/04/16 11:57 07/04/16 11:57 07/04/16 11:57 07/04/16 11:57 07/04/16 11:57 Intake & Output 07/03/16 07/04/16 07/05/16 06:59 06:59 06:59 Intake Total 5950 Output Total 3150 Balance 2800 Weight 112.94 kg General appearance: PRESENT: no acute distress Additional comments: pt comfortable abd gravid, nontender FHTS 140s extrem-nontender Result Laboratory Results: 07/04/16 06:15 07/04/16 06:15 07/04/16 07/04/16 06:15 06:15 WBC 9.1 RBC 3.37 L Hgb 10.0 L Hct 29.5 L MCV 88 MCH 29.8 MCHC 34.0 RDW 12.5 Plt Count 231 Sodium 136.9 L Potassium 4.1 Chloride 106 Carbon Dioxide 25 Anion Gap 6 BUN 5 L Creatinine 0.61 Est GFR ( Amer) > 60 Est GFR (Non-Af Amer) > 60 Glucose 79 Calcium 9.2 Total Bilirubin 0.9 AST 17 ALT 29 Alkaline Phosphatase 77 Total Protein 6.2 L Albumin 3.0 L Amylase 42 Lipase 33.3 Plan Discharge Plan: f/u 1 wk as scheduled...hyperemesis diet. May use otc zantac or prilosec for GERD Time Spent: Less than 30 Minutes
== END 2016-07-04 14:24 | disposition home or self-care (01) ==
LOC: 2S 10:12
PROVIDERS: ADMIT Obstetrics & Gynecology; ATTEND Obstetrics & Gynecology
DX: O21.1 Hyperemesis gravidarum with metabolic disturbance (principal); Z3A.23 23 weeks gestation of pregnancy
CPT/HCPCS: 36415 ×2; 82150 ×2; 83690 ×2; 85027 ×2; 80053 ×2; G0378 ×2; G0379; J2405 ×2; J7120 ×2

== ENCOUNTER → 2016-07-23 | Outpatient (CLI) | payer BC ==
--- NOTE | 2016-07-23 10:25 | WOMENS IMAGING REPORT ---
EXAM DESCRIPTION: U/S ABDOMEN LIMITED COMPLETED DATE/TIME: 07/23/2016 7:43 am REASON FOR STUDY: R10.11, RUQ PAIN R10.11 RIGHT UPPER QUADRANT PAIN COMPARISON: None. TECHNIQUE: Dynamic and static grayscale images acquired of the abdomen and recorded on PACS. Jarretto syeda selected color Doppler and spectral images recorded. LIMITATIONS: None. FINDINGS: PANCREAS: No masses. Visualized pancreatic duct normal caliber. LIVER: 16.1 cm. Normal echotexture. LIVER VASCULATURE: Normal directional flow of the main portal vein and hepatic veins. GALLBLADDER: There is some mildly echogenic sludge. No gallstones are seen. There is no thickening of the gallbladder wall. There is no pericholecystic fluid. ULTRASOUND-DETECTED MÉNDEZ'S SIGN: Negative. INTRAHEPATIC DUCTS AND COMMON DUCT: The common bile duct is normal at 3 mm. INFERIOR VENA CAVA: Normal flow. AORTA: No aneurysm. RIGHT KIDNEY: Normal size, 13.6 x 5.1 x 7.1 cm. Normal echogenicity. No masses, no stones, no hydr onephrosis. PERITONEAL AND RIGHT PLEURAL SPACE: No ascites or effusions. OTHER: No other significant findings. IMPRESSION: There is some sludge in the gallbladder. The study is otherwise normal. TECHNICAL DOCUMENTATION: JOB ID: [id number] [employer]- All Rights Reserved
== END ==
LOC: RAD 06:50
PROVIDERS: ATTEND Specialist
DX: O21.0 Mild hyperemesis gravidarum (principal); O26.899 Other specified pregnancy related conditions, unspecified trimester; R10.11 Right upper quadrant pain; Z3A.00 Weeks of gestation of pregnancy not specified
CPT/HCPCS: 76705

== ENCOUNTER 2016-08-30 09:30 | Outpatient (CLI) | payer BC ==
[2016-08-30 10:09] LABS: AMORPHOUS SEDIMENT,URINE TRACE /HPF; APPEARANCE,URINE CLOUDY; BILIRUBIN,URINE NEGATIVE (NEGATIVE); GLUCOSE, URINE NEGATIVE (NEGATIVE); KETONES,URINE NEGATIVE (NEGATIVE); LEUKOCYTE ESTERASE,URINE SMALL (NEGATIVE); NITRITE,URINE NEGATIVE (NEGATIVE); PROTEIN,URINE NEGATIVE (NEGATIVE); URINE SPECIFIC GRAVITY 1.014; UROBILINOGEN,URINE NEGATIVE mg/dL (<2.0)
[2016-08-30 11:06] LABS: URINE BARBITURATES SCREEN NEGATIVE; URINE METHADONE SCREEN NEGATIVE; URINE OPIATES LOW NEGATIVE; URINE PHENCYCLIDINE SCREEN NEGATIVE
== END 2016-08-30 11:45 | disposition home or self-care (01) ==
LOC: LC 09:30
PROVIDERS: ATTEND Obstetrics & Gynecology
PROC: 4A1HXCZ Monitoring of Products of Conception, Cardiac Rate, External Approach (ICD-10-PCS; principal; 2016-08-30)
DX: O47.03 False labor before 37 completed weeks of gestation, third trimester (principal); Z3A.31 31 weeks gestation of pregnancy
CPT/HCPCS: 80307; 81001; 87210

== ENCOUNTER 2016-09-22 18:40 | Outpatient (CLI) | payer BC ==
[2016-09-22 19:47] LABS: APPEARANCE,URINE SLIGHTLY-CLOUDY; BILIRUBIN,URINE NEGATIVE (NEGATIVE); GLUCOSE, URINE NEGATIVE (NEGATIVE); KETONES,URINE NEGATIVE (NEGATIVE); LEUKOCYTE ESTERASE,URINE TRACE (NEGATIVE); NITRITE,URINE NEGATIVE (NEGATIVE); PROTEIN,URINE NEGATIVE (NEGATIVE); URINE SPECIFIC GRAVITY 1.013
[2016-09-22 20:05] LABS: URINE BARBITURATES SCREEN NEGATIVE; URINE METHADONE SCREEN NEGATIVE; URINE OPIATES LOW NEGATIVE; URINE PHENCYCLIDINE SCREEN NEGATIVE
--- NOTE | 2016-09-22 20:22 | Non Stress Test Report ---
Non Stress Test Datetime Report Generated by CPN: 09/22/2016 20:22 DEMOGRAPHIC EGA NST: 34.4 INDICATION Indication for Study: Decreased Movement MONITORING Monitor Explained: Monitor Explained; Test Explained; Patient Verbalized Understanding Time on Monitor: 09/22/2016 19:07 Time off Monitor: 09/22/2016 19:57 NST Duration: 50 NST INTERVENTIONS NST Interventions: PO Hydration; Reposition Patient Physician Notified NST: Dr Kolb BABY A: [id number] BABY A Movement : Present Contraction Frequency : none FHR Baseline : 125 Accelerations : 15X15 Decelerations : None Variability : Moderate 6-25bpm NST Review: Meets Criteria for Reactive NST NST Review and Verified By : OBIE Hebert Results: Reactive NST REPORT Report Trigger: Send Report
== END 2016-09-22 20:11 | disposition home or self-care (01) ==
LOC: LC 18:40
PROVIDERS: ATTEND Obstetrics & Gynecology
DX: O36.8130 Decreased fetal movements, third trimester, not applicable or unspecified (principal); Z3A.34 34 weeks gestation of pregnancy
CPT/HCPCS: 59025; 80307; 81001

== ENCOUNTER 2016-09-29 05:03 | Outpatient (CLI) | payer BC ==
[2016-09-29 05:48] LABS: APPEARANCE,URINE CLEAR; BILIRUBIN,URINE NEGATIVE (NEGATIVE); GLUCOSE, URINE NEGATIVE (NEGATIVE); KETONES,URINE NEGATIVE (NEGATIVE); LEUKOCYTE ESTERASE,URINE NEGATIVE (NEGATIVE); NITRITE,URINE NEGATIVE (NEGATIVE); PROTEIN,URINE NEGATIVE (NEGATIVE); URINE SPECIFIC GRAVITY 1.008; UROBILINOGEN,URINE NEGATIVE mg/dL (<2.0)
[2016-09-29 05:56] LABS: AMNISURE (ROM) NEGATIVE (NEGATIVE)
[2016-09-29 06:01] LABS: URINE BARBITURATES SCREEN NEGATIVE; URINE METHADONE SCREEN NEGATIVE; URINE OPIATES LOW NEGATIVE; URINE PHENCYCLIDINE SCREEN NEGATIVE
--- NOTE | 2016-09-29 06:28 | Non Stress Test Report ---
Non Stress Test Datetime Report Generated by CPN: 09/29/2016 06:27 DEMOGRAPHIC EGA NST: 35.4 INDICATION Indication for Study: Ordered by Provider; Other Indication for Study (NST) Other: labor check MONITORING Monitor Explained: Monitor Explained; Test Explained; Patient Verbalized Understanding Time on Monitor: 09/29/2016 05:24 Time off Monitor: 09/29/2016 06:14 NST Duration: 50 NST INTERVENTIONS NST Interventions: None Physician Notified NST: Dr Ochoa BABY A: [id number] BABY A Movement : Present Contraction Frequency : none FHR Baseline : 130 Accelerations : 15X15 Decelerations : None Variability : Moderate 6-25bpm NST Review: Meets Criteria for Reactive NST NST Review and Verified By : , RN NST Results: Reactive NST REPORT Report Trigger: Send Report
== END 2016-09-29 06:20 | disposition home or self-care (01) ==
LOC: LC 05:03
PROVIDERS: ATTEND Student in an Organized Health Care Education/Training Program
PROC: 4A1HXCZ Monitoring of Products of Conception, Cardiac Rate, External Approach (ICD-10-PCS; principal; 2016-09-29)
DX: O47.03 False labor before 37 completed weeks of gestation, third trimester (principal); Z3A.35 35 weeks gestation of pregnancy
CPT/HCPCS: 59025; 80307; 81001; 84112

== ENCOUNTER 2016-10-08 02:11 | Outpatient (CLI) | payer BC ==
[2016-10-08 03:27] LABS: APPEARANCE,URINE CLOUDY; BILIRUBIN,URINE NEGATIVE (NEGATIVE); GLUCOSE, URINE NEGATIVE (NEGATIVE); KETONES,URINE NEGATIVE (NEGATIVE); LEUKOCYTE ESTERASE,URINE SMALL (NEGATIVE); NITRITE,URINE NEGATIVE (NEGATIVE); PROTEIN,URINE NEGATIVE (NEGATIVE); URINE SPECIFIC GRAVITY 1.017; UROBILINOGEN,URINE NEGATIVE mg/dL (<2.0)
[2016-10-08] MEDS ORDERED: HYDROXYZINE PAMOATE 50 MG CAPSULE PO ONE (03:36)
[2016-10-08] MEDS ORDERED: HYDROXYZINE PAMOATE 50 MG CAPSULE ONE (03:41)
[2016-10-08 03:45] LABS: URINE BARBITURATES SCREEN NEGATIVE; URINE METHADONE SCREEN NEGATIVE; URINE OPIATES LOW NEGATIVE; URINE PHENCYCLIDINE SCREEN NEGATIVE
--- NOTE | 2016-10-08 03:50 | Non Stress Test Report ---
Non Stress Test Datetime Report Generated by CPN: 10/08/2016 03:50 DEMOGRAPHIC EGA NST: 36.6 INDICATION Indication for Study: Other Indication for Study (NST) Other: LC VITAL SIGNS Temperature - NST: 97.8 Pulse - NST: 88 RESP - NST: 16 NBPSYS NST: 123 NBPDIA NST: 68 URINE RESULTS Urine Protein, NST: Negative Urine Ketones - NST: Negative Urine Glucose - NST: Negative Urine Blood - NST: Negative MONITORING Time on Monitor: 10/08/2016 02:56 Time off Monitor: 10/08/2016 03:40 NST Duration: 44 NST INTERVENTIONS NST Interventions: None Physician Notified NST: Dr. Kolb BABY A: [id number] BABY A Movement : Present Contraction Frequency : 0 FHR Baseline : 120 Accelerations : 15X15 Decelerations : None Variability : Moderate 6-25bpm NST Review: Meets Criteria for Reactive NST NST Review and Verified By : K Allison RN NST Results: Reactive NST REPORT Report Trigger: Send Report
== END 2016-10-08 03:53 | disposition home or self-care (01) ==
LOC: LC 02:11
PROVIDERS: ATTEND Obstetrics & Gynecology
PROC: 4A1HXCZ Monitoring of Products of Conception, Cardiac Rate, External Approach (ICD-10-PCS; principal; 2016-10-08)
DX: Z34.93 Encounter for supervision of normal pregnancy, unspecified, third trimester (principal)
CPT/HCPCS: 59025; 80307; 81005

== ENCOUNTER 2017-07-15 19:12 | Emergency (ER) | payer BC ==
--- NOTE | 2017-07-15 19:35 | ER Document Report ---
ED Medical Screen (RME) - General Chief Complaint: Vaginal Bleeding Stated Complaint: VAGINAL BLEEDING Time Seen by Provider: 07/15/17 19:34 Notes: RAPID MEDICAL EVALUATION DISCLOSURE I have seen this patient as part of a Rapid Medical Evaluation and, if applicable, placed any initially appropriate orders. The patient will be seen and fully evaluated, including a full history and physical exam, by a provider ( in Main ED or Fast Track) when a room becomes available. 21-year-old female here with complaints of 2 months vaginal bleeding, daily, with clots, and associated nausea but no vomiting she has had some intermittent and infrequent cramps. She has been using about 7-8 tampons daily. She does not know if she could be . She last gave in October 2016. Denies lightheadedness shortness of breath. TRAVEL OUTSIDE OF THE [place] IN LAST 30 DAYS: No - Related Data Allergies/Adverse Reactions: Tide Detergent Adverse Reaction (Mild, Uncoded 10/08/16 02:54) Generalized Itching Past Medical History - Past Medical History Cardiac Medical History: Denies: Hx Congestive Heart Failure, Hx Heart Attack, Hx Hypertension Pulmonary Medical History: Reports: Hx Pneumonia - 12/2015 Denies: Hx Asthma, Hx Bronchitis, Hx COPD, Hx Tuberculosis Neurological Medical History: Denies: Hx Seizures Renal/ Medical History: Denies: Hx End Stage Renal Disease, Hx Kidney Stones, Hx Peritoneal Dialysis GI Medical History: Reports: Hx Gastroesophageal Reflux Disease - as an Infant. Denies: Hx Cirrhosis, Hx Ulcer Musculoskeltal Medical History: Denies Hx Arthritis, Denies Hx Multiple Sclerosis Psychiatric Medical History: Reports: Hx Depression Denies: Hx Bipolar Disorder, Hx Schizophrenia - Immunizations Immunizations up to date: Yes Hx Diphtheria, Pertussis, Tetanus Vaccination: Yes Physical Exam - Vital signs Vitals: Temp Pulse Resp BP Pulse Ox 98.3 F 68 16 141/81 H 98 07/15/17 19:24 07/15/17 19:24 07/15/17 19:24 07/15/17 19:24 07/15/17 19:24 Course - Vital Signs Vital signs: Temp Pulse Resp BP Pulse Ox 98.3 F 68 16 141/81 H 98 07/15/17 19:24 07/15/17 19:24 07/15/17 19:24 07/15/17 19:24 07/15/17 19:24 Doctor's Discharge - Discharge Referrals: JAN FARRAR DO [Primary Care Provider] - Follow up as needed
[2017-07-15 20:09] LABS: ABSOLUTE BASOPHILS # (AUTO) 0.1 10^3/uL (0.0-0.2); ABSOLUTE EOSINOPHILS # (AUTO) 0.3 10^3/uL (0.0-0.6); ABSOLUTE LYMPHOCYTES (AUTO) 3.7 10^3/uL (0.5-4.7); ABSOLUTE MONOCYTES (AUTO) 0.9 10^3/uL (0.1-1.4); ABSOLUTE NEUT (AUTO) 4.7 10^3/uL (1.7-8.2); BASOPHILS % (AUTO) 0.9 % (0-2); EOSINOPHILS % (AUTO) 2.9 % (0-6); HEMATOCRIT 34.4 % (36.0-47.0); HEMOGLOBIN 11.7 g/dL (12.0-15.5); LYMPHOCYTES % (AUTO) 38.5 % (13-45); MEAN CORPUSCULAR HEMOGLOBIN 27.9 pg (27.0-33.4); MEAN CORPUSCULAR HGB CONC 33.9 g/dL (32.0-36.0); MEAN CORPUSCULAR VOLUME 82 fl (80-97); PLATELET COUNT 324 10^3/uL (150-450); RED BLOOD COUNT 4.19 10^6/uL (3.72-5.28); RED CELL DISTRIBUTION WIDTH 13.6 % (11.5-14.0); SEGMENTED NEUTROPHILS % (AUTO) 48.7 % (42-78); TOTAL CELLS COUNTED % (AUTO) 100 %; WHITE BLOOD COUNT 9.6 10^3/uL (4.0-10.5)
[2017-07-15 20:19] LABS: ANION GAP 10 (5-19); BLOOD UREA NITROGEN 15 mg/dL (7-20); CALCIUM 10.2 mg/dL (8.4-10.2); CARBON DIOXIDE 25 mmol/L (22-30); CHLORIDE 108 mmol/L (98-107); GLUCOSE 103 mg/dL (75-110); SODIUM 143.2 mmol/L (137-145)
--- NOTE | 2017-07-15 22:18 | ER Document Report ---
ED GI/ - General Mode of Arrival: Ambulatory Information source: Patient TRAVEL OUTSIDE OF THE [place] IN LAST 30 DAYS: No <DB BLEVINS - Last Filed: 07/16/17 01:20> <MICHAEL DAVIS - Last Filed: 07/16/17 02:53> - General Chief Complaint: Vaginal Bleeding Stated Complaint: VAGINAL BLEEDING Time Seen by Provider: 07/15/17 19:34 Notes: Patient is a 21-year-old female who presents to the emergency department today with complaints of vaginal bleeding for the last 2 months. Patient states she gave in October and she thought this was "her body catching back up". Patient states the bleeding was normal when compared to a normal period for most of the time, about a week ago it got heavy, and 2 days ago it became "really heavy". Patient denies being on control. Patient denies any family history of clotting disorders. (DB BLEVINS) - Related Data Allergies/Adverse Reactions: Tide Detergent Adverse Reaction (Mild, Uncoded 10/08/16 02:54) Generalized Itching Past Medical History - General Information source: Patient - Social History Smoking Status: Never Smoker Cigarette use (# per day): No Frequency of alcohol use: None Drug Abuse: None Lives with: Family Family History: Reviewed & Not Pertinent, Arthritis, CAD, DM, Hyperlipidemia, Hypertension, Malignancy Patient has suicidal ideation: No Patient has homicidal ideation: No Pulmonary Medical History: Reports: Hx Pneumonia - 12/2015 GI Medical History: Reports: Hx Gastroesophageal Reflux Disease - as an Infant Psychiatric Medical History: Reports: Hx Depression - Immunizations Immunizations up to date: Yes Hx Diphtheria, Pertussis, Tetanus Vaccination: Yes Hx Pneumococcal Vaccination: 03/13/13 <DB BLEVINS - Last Filed: 07/16/17 01:20> Review of Systems - Review of Systems Constitutional: No symptoms reported EENT: No symptoms reported Cardiovascular: No symptoms reported Respiratory: No symptoms reported Gastrointestinal: No symptoms reported Genitourinary: No symptoms reported Female Genitourinary: See HPI, - ?, Vaginal bleeding Musculoskeletal: No symptoms reported Skin: No symptoms reported Hematologic/Lymphatic: No symptoms reported Neurological/Psychological: No symptoms reported -: Yes All other systems reviewed and negative <DB BLVEINS - Last Filed: 06/06/18 01:20> Physical Exam <FELICITYDB - Last Filed: 07/16/17 01:20> <MICHAEL DAVIS - Last Filed: 07/16/17 02:53> - Vital signs Vitals: Temp Pulse Resp BP Pulse Ox 98.3 F 68 16 141/81 H 98 07/15/17 19:24 07/15/17 19:24 07/15/17 19:24 07/15/17 19:24 07/15/17 19:24 - Notes Notes: Physical Exam: General: Alert, appears well. HEENT: Normocephalic. Atraumatic. PERRL. Extraocular movements intact. Oropharynx clear. Neck: Supple. Non-tender. Respiratory: No respiratory distress. Clear and equal breath sounds bilaterally. Cardiovascular: Regular rate and rhythm. Abdominal: Obese. Non-tender. No distension. Normal Bowel Sounds. Female genitourinary: Deferred pelvic exam Back: Non-tender. No deformity or step off. Extremities: Moves all four extremities. Upper extremities: Normal inspection. Normal ROM. Lower extremities: Normal inspection. No edema. Normal ROM. Neurological: Normal cognition. AAOx4. Normal speech. Psychological: Normal affect. Normal Mood. Skin: Warm. Dry. Normal color. (DB BLEVINS) Course - Laboratory Result Diagrams: 07/15/17 19:45 07/15/17 19:45 <FELICITYDB - Last Filed: 07/16/17 01:20> - Laboratory Result Diagrams: 07/15/17 19:45 07/15/17 19:45 <MICHAEL DAVIS - Last Filed: 07/16/17 02:53> - Re-evaluation Re-evalutation: Patient with no acute findings on exam. She does not want a pelvic exam for vaginal bleeding which she has had since October. Patient came in because she is concerned that she is having a miscarriage. Serum hCG negative. Discussed starting patient on control for heavy irregular menses. She is no history of smoking or blood clots in her or her family. She would like to do this at this time. She is to follow-up with her [employer] and return if she has any worsening or concerning symptoms. Stable for discharge. Understands and agrees with plan. (MICHAEL DAVIS) - Vital Signs Vital signs: Temp Pulse Resp BP Pulse Ox 98.4 F 72 18 135/78 H 99 07/15/17 22:37 07/15/17 22:37 07/15/17 22:37 07/15/17 22:37 07/15/17 22:37 - Laboratory Laboratory results interpreted by me: 07/15/17 07/15/17 19:45 19:45 Hgb 11.7 L Hct 34.4 L Chloride 108 H Discharge <DB BLEVINS - Last Filed: 07/16/17 01:20> <MICHAEL DAVIS - Last Filed: 07/16/17 02:53> - Discharge Clinical Impression: Vaginal bleeding Condition: Stable Disposition: HOME, SELF-CARE Instructions: Vaginal Bleeding ([facility]) Prescriptions: Norgestimate-Ethinyl Estradiol [Ortho Tri-Cyclen Lo Tablet] 1 each PO ASDIR PRN #1 packet PRN Reason: Forms: Return to Work Referrals: JAN FARRAR DO [NO LOCAL MD] - Follow up in 1 week Scribe Attestation: 07/16/17 02:53 I personally performed the services described in the documentation, reviewed and edited the documentation which was dictated to the scribe in my presence, and it accurately records my words and actions. (MICHAEL DAVIS) Scribe Documentation - Scribe Written by Scribe:: Diony Trevino, 07/15/2017 2225 acting as scribe for :: Etienne <DB BLEVINS - Last Filed: 07/16/17 01:20>
[2017-07-15 22:38] VITALS: BP 135/78
== END 2017-07-15 22:37 | disposition home or self-care (01) ==
LOC: ER 19:12
DX: N92.1 Excessive and frequent menstruation with irregular cycle (principal)
CPT/HCPCS: 36415; 80048; 84702; 85025; 99284